=== PATIENT | male | born 1990 | race Caucasian/White ===

== ENCOUNTER 2017-12-06 14:23 | Emergency (ER) | payer MEDICAID, OTHER ==
[~2017-12-06] VITALS: Ht 180.3 cm; Wt 65.9 kg
[~2017-12-06 14:23] MED LIST: NO MEDS
[2017-12-06] MEDS ORDERED: MAALOX/LIDOCAINE/NYSTATIN SUSP 5 ML ORAL.SYG PO ONE (16:00)
[2017-12-06 16:29] VITALS: BP 138/80
== END 2017-12-06 16:29 | disposition home or self-care (01) ==
LOC: EMS 14:25
DX: K13.79 Other lesions of oral mucosa (principal); R03.0 Elevated blood-pressure reading, without diagnosis of hypertension; R59.0 Localized enlarged lymph nodes; F12.90 Cannabis use, unspecified, uncomplicated; Z88.8 Allergy status to other drugs, medicaments and biological substances
CPT/HCPCS: 99283

== ENCOUNTER 2019-04-18 16:26 | Emergency (ER) | payer SELFPAY ==
[~2019-04-18] VITALS: Ht 180.3 cm; Wt 65.9 kg
[2019-04-18 17:58] VITALS: BP 135/74
== END 2019-04-18 17:59 | disposition home or self-care (01) ==
LOC: EMS 16:27
DX: N50.3 Cyst of epididymis (principal); F12.90 Cannabis use, unspecified, uncomplicated